=== PATIENT | male | born 1945 | race Caucasian/White ===

== ENCOUNTER 2020-01-28 12:08 | Observation (INO) ==
[2020-01-28] MEDS ORDERED: Isovue-370 500 ML BOTTLE IVP ONE (12:42)
[2020-01-28 13:34] LABS: Basophils % 0.8 %; Eosinophils % 0.8 %; Hematocrit 28.7 % (37.5-50.1); Hemoglobin 9.2 g/dL (12.9-16.9); Immature Granulocytes % 0.4 % (0-4); Lymphocytes # 0.3 K/mcL (0.6-4.6); Lymphocytes % 10.6 %; Mean Corpuscular HGB Conc 32.1 g/dL (31.6-35.5); Mean Corpuscular Volume 93.5 fL (83.0-100.0); Mean Platelet Volume 11.3 fL (9.4-12.4); Monocytes # 0.3 K/mcL (0.0-1.3); Monocytes % 10.9 %; Platelet Count 111 K/mcL (140-400); Red Blood Count 3.07 M/mcL (4.19-5.50); Red Cell Distribution Width 15.2 % (11.5-14.5); Segmented Neutrophils % 76.5 %; White Blood Count 2.7 K/mcL (4.3-11.1)
[2020-01-28 13:50] LABS: BUN/Creatinine Ratio 19 (6-26); Blood Urea Nitrogen 31 mg/dL (8-23); Calcium 8.7 mg/dL (8.6-10.3); Carbon Dioxide 28 mEq/L (23-29); Chloride 104 mEq/L (98-107); Glucose 198 mg/dL (70-105); Osmolality,Calculated 300 (280-300); Potassium 4.7 mEq/L (3.5-5.1); Sodium 139 mEq/L (136-145); eGFR For African Americans 51 (> 60); eGFR For Non-African Americans 42 (> 60)
[2020-01-28 13:51] LABS: Troponin I < 0.03 ng/mL (< 0.04)
[2020-01-28] MEDS ORDERED: 0.9 % Sodium Chloride 1,000 ML IVC ONE (13:54)
[2020-01-28] MEDS ORDERED: Acetaminophen 325 MG TABLET PO PRN (16:13)
[2020-01-28] MEDS ORDERED: *HR* OxyCODONE Immed Rel 5 MG TABLET PO PRN (16:13)
[2020-01-28] MEDS ORDERED: Ondansetron 4 MG/2 ML VIAL IVP PRN (16:13)
[2020-01-28] MEDS ORDERED: Naloxone 0.4 MG/ML INJ IVP PRN (16:13)
[2020-01-28] MEDS ORDERED: *HR* HYDROcodone/Acet 5/325 mg TABLET PO PRN (16:13)
[2020-01-28] MEDS ORDERED: Ipratropium/Albuterol Neb 3 ML IH PRN (16:14)
[2020-01-28] MEDS ORDERED: 0.9 % Sodium Chloride 1,000 ML IVC SCH (16:15)
[2020-01-28] MEDS ORDERED: Piperacillin/Tazobactam 3.375 GM in 0.9 % Sodium Chloride Mini Bag 100 ML IVPB ONE (16:17)
[2020-01-28] MEDS: *HR* Heparin 5,000 UNIT/ML VIAL SQ SCH (20:56)
[2020-01-29] MEDS: Piperacillin/Tazobactam 3.375 GM in 0.9 % Sodium Chloride Mini Bag 100 ML IVPB SCH ×2 (00:39→08:09)
[2020-01-29 04:35] LABS: Basophils % 0.5 %; Red Blood Count 2.75 M/mcL (4.19-5.50)
[2020-01-29 04:37] LABS: Hematocrit 25.7 % (37.5-50.1); Immature Platelets 4.5 % (1.1-6.1); Lymphocytes # 0.2 K/mcL (0.6-4.6); Lymphocytes % 11.9 %; Mean Corpuscular HGB Conc 31.1 g/dL (31.6-35.5); Mean Corpuscular Hemoglobin 29.1 pg (28.0-33.3); Mean Corpuscular Volume 93.5 fL (83.0-100.0); Mean Platelet Volume 11.4 fL (9.4-12.4); Monocytes # 0.3 K/mcL (0.0-1.3); Monocytes % 15.3 %; Neutrophils # 1.4 K/mcL (1.6-8.9); Red Cell Distribution Width 15.1 % (11.5-14.5); Segmented Neutrophils % 71.3 %
[2020-01-29 04:54] LABS: BUN/Creatinine Ratio 17 (6-26); Blood Urea Nitrogen 24 mg/dL (8-23); Carbon Dioxide 28 mEq/L (23-29); Chloride 110 mEq/L (98-107); Glucose 211 mg/dL (70-105); Magnesium 1.5 mg/dL (1.6-2.6); Osmolality,Calculated 304 (280-300); Potassium 4.6 mEq/L (3.5-5.1); Sodium 142 mEq/L (136-145); eGFR For African Americans > 60 (> 60); eGFR For Non-African Americans 50 (> 60)
[2020-01-29 05:15] LABS: Platelet Count 83 K/mcL (140-400)
[2020-01-29 05:16] LABS: Platelet Estimate Decreased (Normal)
[2020-01-29 05:34] LABS: Bilirubin,Urine Negative (Negative); Blood,Urine Negative (Negative); Clarity,Urine Clear (Clear); Color,Urine Light-Yellow (Yellow); Glucose,Urine (UA) Normal (Normal); Ketones,Urine Negative (Negative); Leukocyte Esterase,Urine Trace (Negative); Nitrite,Urine Negative (Negative); Protein,Urine Trace mg/dL (Neg-Trace); RBC,Urine 0-3 per hpf (0-3); Specific Gravity,Urine 1.029 (1.010-1.025); Urobilinogen,Urine Normal (Normal); WBC,Urine 0-3 per hpf (0-3)
[2020-01-29] MEDS: *HR* Heparin 5,000 UNIT/ML VIAL SQ SCH (05:45)
[2020-01-29] MEDS ORDERED: predniSONE 20 MG TABLET PO SCH (10:15)
[2020-01-29] MEDS ORDERED: levoFLOXacin 500 MG TABLET PO SCH (10:15)
[2020-01-29 10:55] VITALS: BP 124/63
== END 2020-01-29 12:50 | disposition home or self-care (01) ==
LOC: EMEROOARM 12:08 → 3ANU 12:08
PROVIDERS: ADMIT Internal Medicine; ATTEND Internal Medicine